=== PATIENT | female | born 1990 | race Caucasian/White ===

== ENCOUNTER 2019-08-29 04:22 | Emergency (ER) | payer OTHER ==
[2019-08-29 04:54] VITALS: BP 114/71; PULSE 107; TEMP 98.2; BMI 33.8
--- NOTE | 2019-08-29 05:10 | PDOC ---
History of Present Illness - General Chief Complaint: Sore Throat Stated Complaint: THROAT PAIN Time Seen by Provider: 08/29/19 05:00 History Source: Patient Exam Limitations: No Limitations - History of Present Illness Initial Comments: 08/29/19 05:01 HPI: 29yo F no sig PMH presenting with sore throat for 3 days. Patient seen at urgent care yesterday, negative rapid strep test, diagnosed with viral infection. Continued throat pain, now noticed white in her throat, concerned that she has strep. Presenting this morning to get something to make her feel better before an exam this morning that cannot be rescheduled. Good PO intake, no fevers, chills, SOB, cough, chest pain. Took 1200 Motrin this evening. All: NKDA Meds: Denies PMH: Denies PSH: Denies Past History - Past Medical History Allergies/Adverse Reactions: Allergies Allergy/AdvReac Type Severity Reaction Status Date / Time No Known Allergies Allergy Verified 08/29/19 04:49 COPD: No - Psycho Social/Smoking Cessation Hx Smoking History: Never smoked Review of Systems - Review of Systems Able to Perform ROS?: Yes Is the patient limited Kyrgyz proficient: Yes Constitutional: Yes: Fever (intermittently ). No: Chills HEENTM: Yes: Nose Congestion, Throat Pain, Difficulty Swallowing (pain with swallowing). No: Recent change in vision, Nose Pain, Throat Swelling, Mouth Swelling Respiratory: No: Cough, Shortness of Breath, Stridor, Wheezing, Productive cough Cardiac (ROS): No: Chest Pain, Irregular Heart Rate, Chest Tightness ABD/GI: No: Constipated, Diarrhea, Nausea, Poor Appetite, Poor Fluid Intake, Vomiting : No: Burning, Dysuria, Frequency Musculoskeletal: No: Muscle Pain, Muscle Weakness Integumentary: No: Pallor, Pruritus, Rash Neurological: No: Headache, Numbness, Tingling, Weakness Psychiatric: No: Stressors, Change in Appetite Endocrine: No: Increased Thirst, Increased Urine Hematologic/Lymphatic: No: Anemia, Blood Clots, Easy Bleeding All Other Systems: Reviewed and Negative *Physical Exam - Vital Signs Last Vital Signs Temp Pulse Resp BP Pulse Ox 98.2 F 107 H 18 114/71 99 08/29/19 04:44 08/29/19 04:44 08/29/19 04:44 08/29/19 04:44 08/29/19 04:44 - Physical Exam 08/29/19 05:43 Vitals reviewed, AF, tachy to 107, otherwise HDS GEN: Well appearing, appears stated age, NAD, comfortable. AAOx3. HEENT: NCAT, EOMI, PERRL. +scant white tonsilar exudate, throat mildly erythematous. Moist mucous membranes. Normal voice. Trachea midline. CV: RRR, S1/S2, no murmurs / rubs / gallops appreciated. LUNG: CTAB, normal work of breathing. No wheezes, rales, rhonchi. No cough. Speaking full sentences. GI: Soft, NTND, +BS, no guarding, no rebound. No masses. Neg CVAT b/l. EXTREMITIES: 2+ distal pulses. No LE edema. No obvious deformities of all extremities. SKIN: Warm, dry, no rashes appreciated, non-jaundiced. PSYCH: Normal mood and affect. Cooperative and appropriate. NEURO: CN grossly intact. Moving all extremities well. Normal strength and sensation grossly. Medical Decision Making - Medical Decision Making 08/29/19 05:29 29yo F no sig PMH presenting with sore throat for 3 days asking for antibiotics for symptomatic relief before her exam. DDX: Viral infection, Step, Influenza. - Rapid Flu - Rapid Strep - 1L IVF - 1g IVF 08/29/19 06:09 - Toradol 15 mg - Additional IVF - Flu, Strep Negative 08/29/19 06:33 - Clinical suspicion high for step, Bicillin given Dispo: Home Discharge - Discharge Information Problems reviewed: Yes Clinical Impression/Diagnosis: Strep pharyngitis Condition: Improved Disposition: HOME - Admission No - Follow up/Referral Referrals: Jose Maria Garcia [Primary Care Provider] - - Patient Discharge Instructions Patient Printed Discharge Instructions: DI for Viral Syndrome Additional Instructions: You were seen and evaluated for sore throat. Your symptoms are consistent with a viral infection, the treatment is supportive and symptoms usually resolve after 5-7 days. Please continue your home medications as prescribed. You may take Tylenol and Motrin for your pain. Continue to stay hydrated. Follow up with your primary care doctor in the next 2-3 days for continues care. Return to the ED for any new or concerning symptoms. - Post Discharge Activity Work/Back to School Note: Back to School
[2019-08-29] MEDS ORDERED: SODIUM CHLORIDE 0.9% 500 ML INFUS.BAG IV ONE ×2 (05:11→05:56)
[2019-08-29] MEDS ORDERED: ACETAMINOPHEN 1000 MG/100 ML VIAL (NON FORMULARY) IVPB ONE (05:11)
[2019-08-29] MEDS ORDERED: ACETAMINOPHEN INJECTION 100 ML IVPB ONE (05:28)
--- NOTE | 2019-08-29 05:56 | PDOC ---
Attending Attestation - Resident Resident Name: Lukasz Marrero - ED Attending Attestation I have performed the following: I have examined & evaluated the patient, The case was reviewed & discussed with the resident, I agree w/resident's findings & plan - HPI HPI: 08/29/19 06:34 Pt was seen at [facility] and she was told that she is strep and flu negative However she is febrile and she feels crummy and she has sire throat. - Physicial Exam PE: 08/29/19 06:33 Pt is febrile. Sore throat. Swelling of right tonsil - Medical Decision Making 08/29/19 06:32 Pt has strep throat; left tonsil exudate and swelling and smell of strep Pt will be given bicillin
[2019-08-29] MEDS ORDERED: LACTATED RINGERS SOLUTION 1000 ML INFUS.BAG IV ONE (06:00)
[2019-08-29] MEDS ORDERED: KETOROLAC TROMETHAMINE 15 MG/ML VIAL IVPUSH ONE (06:12)
[2019-08-29] MEDS ORDERED: PENICILLIN G BENZATHINE 1,200,000 UNIT/2 ML PFS IM ONE ×2 (06:32→06:35)
[2019-08-29] MEDS ORDERED: KETOROLAC TROMETHAMINE 15 MG/ML VIAL ONE (06:35)
== END 2019-08-29 06:48 | disposition home or self-care (01) ==
LOC: JER 04:22
PROC: 3E02329 Introduction of Other Anti-infective into Muscle, Percutaneous Approach (ICD-10-PCS; principal; 2019-08-29)
PROC: 3E0333Z Introduction of Anti-inflammatory into Peripheral Vein, Percutaneous Approach (ICD-10-PCS; 2019-08-29)
DX: J02.0 Streptococcal pharyngitis (principal); B95.5 Unspecified streptococcus as the cause of diseases classified elsewhere
CPT/HCPCS: 87070; 87077; 87804; 87880; 96372; 96374; 99284-25; J0131